=== PATIENT | female | born 1995 | race Hispanic/Latino ===

== ENCOUNTER → 2024-12-08 09:04 | Outpatient (CLI) | payer OTHER, SELFPAY ==
--- NOTE | 2024-12-08 09:08 | DI.MRI.S_ITS ---
PROCEDURE: MR LUMBAR SPINE WO CON INDICATIONS: CHRONIC RT SIDED LBP W/RADIATION TO HEEL TECHNIQUE: Noncontrast sagittal T1 spin echo and T2 fast echo, sagittal STIR, and T2 fast spin echo through the lumbar spine. In cases with scoliosis, additional coronal T2 fast spin echo may be performed. COMPARISON: None. FINDINGS: Image quality: Excellent. Alignment and Curvature: There is normal bony alignment. In the absence of plain films are comparison it is assumed that there are 5 non rib-bearing lumbar vertebral bodies, and that axial imaging was obtained from T12-L1 through L5-S1. Bone Marrow: Marrow is of normal overall signal. No acute vertebral body compression fractures. Spinal Cord: Conus medullaris terminates at the L1-L2 level. There is a focal syrinx of the cord near the conus centered at inferior T12 level measuring approximately 4 mm in diameter. Reference sagittal image 9 of series 2 and axial image 1 of series 5. The Paraspinous Soft Tissues: No paravertebral masses. T12-L1: No canal stenosis or foraminal stenosis. L1-L2: No canal stenosis or foraminal stenosis. L2-L3: Mild disc bulge. Mild facet hypertrophy. No canal stenosis or foraminal stenosis. L3-L4: Disc bulge. Facet hypertrophy, greater than expected for patient age. No canal stenosis or foraminal stenosis. L4-L5: Minimal disc bulge. Facet hypertrophy, greater than expected for patient age. No canal stenosis or foraminal stenosis. L5-S1: Normal appearance. IMPRESSION: 1. There is a lower thoracic syrinx focally, just above the conus. 2. Multilevel lower lumbar facet arthropathy, greater than expected for patient age. 3. No canal stenosis or foraminal stenosis. Comment: Recommend thoracic spine MRI with without contrast to evaluate the length of the syrinx and whether there is any associated enhancing lesion. Dictated by: Sajan Warren M.D. on 12/08/2024 at 15:46 Approved by: Sajan Warren M.D. on 12/08/2024 at 15:53
== END ==
DX: M47.26 Other spondylosis with radiculopathy, lumbar region (principal); M54.41 Lumbago with sciatica, right side
CPT/HCPCS: 72148

== ENCOUNTER → 2025-01-18 11:39 | Outpatient (CLI) | payer OTHER, SELFPAY ==
--- NOTE | 2025-01-18 11:51 | DI.MRI.S_ITS ---
PROCEDURE: MR CERVICAL SPINE WO CON INDICATIONS: CERVICALGIA TECHNIQUE: Noncontrast sagittal T1 spin echo and T2 fast spin echo, sagittal STIR, foraminal oblique sagittal T2 fast spin echo, and axial gradient echo or T2 fast spin echo through the cervical spine. COMPARISON: None. FINDINGS: Image quality: Excellent. Alignment and Curvature: There is normal bony alignment. Bone Marrow: Marrow demonstrates normal overall signal. Spinal Cord: Visualized spinal cord has normal size and signal. No cerebellar tonsillar herniation. Paraspinous Soft Tissues: No paravertebral masses. Prevertebral soft tissues are normal in thickness. C2-C3: Normal appearance. C3-C4: Slight loss of disc signal. No central stenosis. No neural foraminal narrowing. No neural compression. C4-C5: Slight loss of disc signal. No central stenosis. No neural foraminal narrowing. No neural compression. C5-C6: Slight loss of disc signal. No central stenosis. No neural foraminal narrowing. No neural compression. C6-C7: Normal appearance. C7-T1: Normal appearance. IMPRESSION: New Minimal multilevel degenerative disc disease. No central stenosis. No neural foraminal narrowing. No neural compression. No abnormal spinal cord signal. Dictated by: Concha Loza MD, PhD on 01/18/2025 at 13:14 Approved by: Concha Loza MD, PhD on 01/18/2025 at 13:16
== END ==
DX: M54.2 Cervicalgia (principal)
CPT/HCPCS: 72141

== ENCOUNTER 2025-02-16 09:00 | Day surgery (SDC) | payer OTHER, SELFPAY ==
[2025-02-13 12:22] VITALS: BMI 31.4
[2025-02-16 09:28] VITALS: BMI 30.7
--- NOTE | 2025-02-16 09:32 | PM.PREOP ---
Pre-operative Note COVID-19 COVID-19 status: Not tested Interval Note History & Physical reviewed/Exam performed by Physician: Yes Changes to H&P: No
[2025-02-16] MEDS: LACTATED RINGERS 1,000 ML 42 ML IV (09:42)
[2025-02-16 09:49] VITALS: BP 99/71; PULSE 75; RESP 15; TEMP 36.5; O2SAT 96
[2025-02-16] MEDS: SCOPOLAMINE 1 PATCH TOP (10:47)
[2025-02-16] MEDS: ACETAMINOPHEN IV 1,000 MG/100 ML VIAL 400 MG IV (10:47)
[2025-02-16] MEDS: FAMOTIDINE 20 MG/2 ML VIAL IV (10:47)
--- NOTE | 2025-02-16 11:23 | SUR.OPER ---
Lithotomy on padded OR bed, head on pillow, arms secured on padded arm boards at <90 degrees abduction. strap across chest. Legs secured in padded yellow fins stirrups.
[2025-02-16] MEDS: BUPIVACAINE 0.25% W/ EPI 30 ML VIAL INJ (11:27)
--- NOTE | 2025-02-16 12:13 | PM.GYNOP.1 ---
Operative Date/Time/Diagnoses Date of procedure: 02/16/25 Time of procedure: 11:30 Pre-op diagnosis: Anatomic stress urinary incontinence Post-op diagnosis: same Procedure & Clinicians Procedure: Procedures Operation Date: 02/16/25 10:30 Actual Procedure Side Surgeon p Mid urethral sling and Cystoscopy Not Applicable Kelvin Chavez MD Indications: Reanna is a 29-year-old status post vaginal in April 2024 who presents today in referral for evaluation of possible prolapse. She experienced a spontaneous delivery of a 8 lb 5 oz infant but did not have significant perineal trauma but did require a couple of small stitches. Patient experienced menarche at age 10 and has had regular predictable periods since that time. Patient has noticed what she calls of vaginal bulge but even more notable has been leakage of urine with any coughing, sneezing, or straining. Patient has undergone pelvic floor physiotherapy but did not improve her ROSANNE symptoms. She occasionally feel as though she is not fully emptying her bladder but has had no recent UTIs. In addition the patient has been experiencing introital dyspareunia since her delivery which takes the form of a pressure sensation along with sharp pain at the opening. Patient also experiences some pelvic pressure and discomfort even when she is not on period but does have significant cramping with her menses. Since the patient has already been through extensive pelvic floor physiotherapy without benefit to her ROSANNE, we discussed other options for improving/resolving the ROSANNE symptoms. Following those discussions, patient expresses a desire to move forward with mid urethral sling placement and a case request submitted. Insofar as the introital dyspareunia, would 1st recommend trigger point injection with Depo-Medrol and Marcaine which can be performed following her mid urethral sling placement. The patient presents today for her scheduled surgery. Surgeon: Kelvin Chavez Anesthesia Type: General Operative Notes Findings: Marked UVJ hypermobility. The bladder mucosa is unremarkable and there is no evidence of bladder or urethral injury during the course of the procedure. Closure Type: primary Specimen(s): none Applied: none Estimated blood loss (mL): 15 Blood products transfused: none Procedure in detail: With the patient under satisfactory general anesthesia in the modified dorsal lithotomy position, the vagina, perineum, and lower abdomen prepped and draped in the usual manner for mid urethral sling placement and cystoscopy. A pre-surgical safety time-out was then taken in accordance with [facility] OR protocols. A weighted speculum was inserted in the vagina and the anterior vaginal wall inspected. A Ferraro catheter was inserted in the bladder and the mid urethra was identified by palpation of the Ferraro bulb. Once the mid urethra had been identified, 2 Allis clamps were placed and the area of incision infiltrated with 0.25% Marcaine with epinephrine. A 2 cm longitudinal incision of the vaginal mucosa overlying the mid urethra was then made and using Metzenbaum scissors the dissection was carried lateral on both sides so as to be able to safely introduce the retropubic tension-free vaginal tape. The TVT needle was placed 1st on the right side followed by placement of a left up through the suprapubic skin. The needle tips were brought out through the skin and remained in place while the Ferraro catheter was removed and cystoscopy performed with findings as noted above. The TVT needles were then brought up through the suprapubic incisions and removed with suture scissors. The mid urethral sling was then appropriately positioned under the mid urethra and the plastic sleeves removed from the TVT once it was in correct position. The redundant portion TVT material was then excised at the skin line of the suprapubic incisions. Correct positioning of the DVT was then confirmed and the vaginal incision closed with 3-0 chromic in a running locking stitch. Pressure was maintained on the retropubic tissues for 5 minutes so as to reduce the risk subsequent bleeding or bruising. The suprapubic incisions were then closed with skin glue and inappropriate dressing was applied. Patient was then awakened from anesthesia and transferred to the PACU for a period of observation and recovery after having tolerated procedure well. Complications: none Post-operative Condition: stable Disposition: PACU Plan for aftercare: Routine postoperative care with follow-up planned for 2 weeks postop Post-Operative Instructions Surgical Site: Blood spotting from the vagina is expected and not cause for alarm. All stitches will dissolve on their own. You may apply ice packs to the vaginal/pubic area as needed for comfort for the first two days. You can shower approximately 48 hours after your surgery but avoid scrubbing the surgical site. Do not submerge underwater for 6 weeks (no bathtub or swimming pool). Diet and Activity: You may return to your normal diet and light activity, as tolerated, after surgery. Avoid driving while on narcotic pain medications. Please avoid any heavy lifting more than 10 lbs or strenuous physical activities altogether for 4 weeks and then ease back into your regular activity. Avoid vaginal intercourse or penetration for 6 weeks. Medications: You received a prescription for a narcotic pain pill to use in addition to extra strength Tylenol (acetaminophen). Narcotics can cause constipation so use [id number] stool softeners as needed. Please avoid any Aspirin, Advil, Motrin, Aleve, ibuprofen, or any other blood thinners after the procedure for at least two days. Problems you should report: Fevers > 101. Any pain not controlled by pain medication provided. Uncontrolled bleeding from the incision. Inability to urinate. Any concerns or problems, please contact us at anytime. Follow-up: You should be scheduled for a post-operative appointment about 2 weeks after your surgery. Please call to confirm time if necessary.
[2025-02-16 12:17] VITALS: BP 112/70; PULSE 66; RESP 16; O2SAT 98
[2025-02-16 12:21] VITALS: BP 112/60; PULSE 63; RESP 16; O2SAT 98
[2025-02-16 12:24] VITALS: BP 113/59; PULSE 72; RESP 16; TEMP 36.2; O2SAT 100
[2025-02-16 12:30] VITALS: BP 120/70; PULSE 78; RESP 16; TEMP 36.2; O2SAT 98
[2025-02-16] MEDS: OXYCODONE IR 5 MG TABLET PO (12:31)
[2025-02-16 12:44] VITALS: BP 116/74; PULSE 66; RESP 16; TEMP 36.2; O2SAT 100
== END 2025-02-16 13:24 | disposition home or self-care (01) ==
PROVIDERS: Referring Provider Obstetrics & Gynecology; Visit Provider Obstetrics & Gynecology
PROC: 0TSD0ZZ Reposition Urethra, Open Approach (ICD-10-PCS; CPT 57288; principal; 2025-02-16 10:30)
DX: N93.9 Abnormal uterine and vaginal bleeding, unspecified (principal)
CPT/HCPCS: 57288; C1771; J0131; J1100; J1885; J2250; J2405; J2704; J3010; J3490

== ENCOUNTER → 2025-04-11 12:37 | Outpatient (CLI) | payer OTHER, SELFPAY ==
--- NOTE | 2025-04-11 12:38 | DI.MRI.S_ITS ---
PROCEDURE: MR THORACIC SPINE WO/W CON INDICATIONS: Follow up Lumbar MRI TECHNIQUE: Noncontrast sagittal T1 spin echo and T2 fast spin echo, sagittal STIR, axial T1 and T2 fast spin echo through the thoracic spine. After the administration of contrast, axial and sagittal T1 spin echo with fat saturation through the thoracic spine. COMPARISON: [facility], MR, MR LUMBAR SPINE WO CON, 12/08/2024, 9:56. FINDINGS: Image quality: Excellent. Alignment and curvature: There is normal bony alignment. Marrow: Marrow is of normal overall signal. No acute vertebral body compression fractures. Spinal cord: Focal dilatation of the central canal centered at T12 measuring approximately 5 x 4 millimeters in transverse plane, stable compared to prior. There is no associated enhancement. Visualized spinal cord is otherwise of normal signal and size, without abnormal enhancement. Paraspinous soft tissues: No paravertebral masses or abnormal enhancement. Miscellaneous: Central canal and foramina appear widely patent at all scanned levels. IMPRESSION: Focal syrinx of the lower thoracic cord centered at T12 is stable compared to prior. There is no associated enhancement. Remainder of the thoracic cord is normal in size and signal intensity. No significant degenerative changes. No central canal or neural foraminal stenosis. Dictated by: Sam Coombs M.D. on 04/11/2025 at 14:10 Approved by: Sam Coombs M.D. on 04/11/2025 at 14:17
== END ==
LOC: MRI 12:37
DX: M54.50 Low back pain, unspecified (principal); G95.0 Syringomyelia and syringobulbia
CPT/HCPCS: 72157; A9579

== ENCOUNTER → 2025-05-22 13:43 | Outpatient (CLI) | payer OTHER, SELFPAY ==
[2025-05-22 16:45] LABS: Thyroid Stimulating Hormone 1.02 uIU/mL (0.47-4.68)
== END ==
PROVIDERS: Referring Provider Surgery; Visit Provider Surgery
DX: K59.00 Constipation, unspecified (principal); R19.4 Change in bowel habit
CPT/HCPCS: 36415; 84443; 99213

== ENCOUNTER 2025-06-08 10:02 | Day surgery (SDC) | payer OTHER, SELFPAY ==
--- NOTE | 2025-06-08 | PATH_ITS ---
[facility] Accession Number: [id number] No. of containers..02 Tissue . 01 Material submitted: . PART A: duodenum - DUODENAL BIOPSY PART B: gastrointestinal site - ANTRAL BIOPSY . 01 Diagnosis: Part A: DUODENAL BIOPSY: Duodenal mucosa with moderate active inflammation and associated reactive villous blunting. No infectious organisms identified. See comment. . Specimen Comments: The features raise a differential including peptic duodenitis, NSAID-induced injury or infectious etiologies, although no infectious organisms are seen in this sample. Evaluation for celiac disease is not possible given the presence of reactive villous changes throughout the sample. . Part B: ANTRAL BIOPSY: Gastric mucosa with minimal chronic inflammation. No Helicobacter organisms identified. No intestinal metaplasia, dysplasia, or malignancy identified. [facility] 06/20/2025 1604 Local . 01 Electronically signed: . Franki Kincaid MD, Pathologist NPI- [id number] . 01 Gross description: . . . . Received two formalin-filled containers, both labeled with the patient's name: . A. In a container labeled duodenal. Specimen consists of three fragments of diaz, soft tissue which range in size from 0.1 x 0.1 x 0.1 cm to 0.2 x 0.2 x 0.2 cm. All fragments are totally submitted in cassette A. . B. In a container labeled 2. antral. Specimen consists of two fragments of diaz, soft tissue which range in size from 0.2 x 0.2 x 0.1 cm to 0.3 x 0.3 x 0.3 cm. All fragments are totally submitted in cassette B. ([id number]) /[facility] 06/20/2025 1604 Local . 01 Microscopic: . Part B: ANTRAL BIOPSY: An immunohistochemical stain was performed to evaluate for Helicobacter organisms and is negative. The control stains appropriately. * This test was developed and the performance characteristics were validated by [facility]. It has not been cleared or approved by the Food and Drug Administration. . 01 Pathologist provided ICD-10: K29.30, K29.80 . 01 CPT . 571964, 881233, [id number] Specimen Comment: A courtesy copy of this report has been sent to [facility] Performed at: [address] [address], [place], [place] [id number] MD Franki Kincaid MD Phone: [phone]
--- NOTE | 2025-06-08 06:58 | PM.PREOP ---
Pre-operative Note Interval Note History & Physical reviewed/Exam performed by Physician: Yes Changes to H&P: No ASA Class (for procedural sedation): I
[2025-06-08 10:59] VITALS: BP 123/81; PULSE 73; RESP 15; TEMP 36.2; O2SAT 100
[2025-06-08] MEDS: LACTATED RINGERS 1,000 ML 42 ML IV (11:08)
--- NOTE | 2025-06-08 12:05 | P.OP.EGD&C_ITS ---
Operative Date/Time/Diagnoses Date of procedure: 06/08/25 Time of procedure: 12:37 Pre-op diagnosis: Change in bowel habits, h/o GERD, PUD Post-op diagnosis: other (Gastritis) Procedure & Clinicians Study performed: EGD/Colonoscopy with biopsy Same procedure(s) as scheduled: Yes Indications: 29yo F h/o PUD, GERD, change in bowel habits Surgeon: Bakari Dubon Anesthesia Type: MAC +/- Procedure Notes SCOAP/Timeout: Performed Procedure in detail: EGD Informed consent was obtained. The procedure, its risks, benefits, and alternatives were discussed. Patient understood and agreed to proceed. The patient was placed in the left lateral decubitus position with head elevated. Sedation given per anesthesia. The video endoscope was inserted into the oropharynx and guided under direct vision into the esophagus, stomach, and duodenum which were carefully examined. The scope was retroflexed to examine the hiatus and gastroesophageal junction. Antral biopsies were obtained for Helicobacter pylori. The patient tolerated the procedure very well. There were no apparent complications. Significant EGD findings: Z-line noted at: 38cm Mild to moderate duodenitis, antral gastritis, biopsied duodenum and antrum No hiatal hernia No espohagitis No ulcers in esophagus, stomach or duodenum Colonoscopy Patient placed in left lateral recumbent position. Time out was performed. Procedural sedation was administered by anesthesia. Examination began with a thorough inspection of the perianal area. There was no evidence of fissures, fistulae, external hemorrhoids or cutaneous malignancy. The colonoscope was then placed into the rectum and the lumen was insufflated with carbon dioxide. The scope was carefully advanced forward. Ultimately the cecum was intubated and confirmed by identification of the ileocecal valve, the appendiceal orifice and the confluence of the taenia. The scope was then slowly withdrawn examining the colon thoroughly in all directions. In the rectum, retroflexion of the scope was performed for inspection of the distal rectum and anal canal. ?Significant colonoscopy findings: ?1. Quality of the preparation-good, [place] 2-3, improved with irrigation/suction ?2. Normal colonoscopy, no polyps, mass, stricture, ulcer Scope withdrawal time: 6 Findings: gastritis Specimen(s): other (biopsies) Estimated Blood Loss: 5 Complications: none Impression: Gastritis/duodenitis - Omeprazole 40mg po daily Plan next screening colonoscopy at 43yo Post-procedure Recommendations: Will call with biopsy results Plan for aftercare: PACU then home Follow up: as needed Disposition: PACU
[2025-06-08 12:44] VITALS: BP 95/59; PULSE 73; RESP 15; O2SAT 100
[2025-06-08 12:45] VITALS: BP 97/64; PULSE 64; RESP 16; O2SAT 100
[2025-06-08 12:46] VITALS: BP 97/55; PULSE 72; RESP 16; TEMP 36.4; O2SAT 98
[2025-06-08 12:54] VITALS: BP 104/58; PULSE 66; RESP 16; O2SAT 98
[2025-06-08 12:58] VITALS: BP 115/59; PULSE 71; RESP 16; O2SAT 98
== END 2025-06-08 13:15 | disposition home or self-care (01) ==
PROVIDERS: Referring Provider Surgery; Visit Provider Surgery
PROC: 0DJ08ZZ Inspection of Upper Intestinal Tract, Via Natural or Artificial Opening Endoscopic (ICD-10-PCS; CPT 43239; principal; 2025-06-08 11:30)
PROC: 0DJD8ZZ Inspection of Lower Intestinal Tract, Via Natural or Artificial Opening Endoscopic (ICD-10-PCS; CPT 45378; 2025-06-08 11:30)
DX: R19.4 Change in bowel habit (principal); K21.9 Gastro-esophageal reflux disease without esophagitis; Z87.11 Personal history of peptic ulcer disease; K29.80 Duodenitis without bleeding; K29.50 Unspecified chronic gastritis without bleeding
CPT/HCPCS: 43239; 45378; J2704; J7120